=== PATIENT | female | born 1945 | race Caucasian/White ===

== ENCOUNTER 2025-05-22 13:54 | Outpatient (AMB) | payer OTHER, SELFPAY ==
[2025-05-22 14:03] VITALS: BMI 35.5
--- NOTE | 2025-05-22 14:03 | A.PHYSOV ---
Vital Signs 05/22/25 14:03 Height 5 ft Weight 182 lb BMI 35.5 Intake Visit Reasons: 1M FUV Intake Note: Patient is a 80 year old female here for follow up on neck pain. 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 She has undergone 12 sessions of therapy which provided temporary relief but no lasting benefit. The pain is localized to the neck and radiates to the head upon certain movements. The patient reports that moving her neck exacerbates the pain, while lifting her arm does not cause any discomfort. She is currently taking gabapentin at night, which aids in sleep, and naproxen as needed for pain management. She avoids taking naproxen frequently to prevent overuse. The patient has a history of lumbar spinal stenosis for which she received injections and subsequently underwent surgery, resulting in significant improvement. She has failed conservative treatment and would like to consider further treatment options. Pain Description - Onset: Chronic neck pain with radiation to the head upon certain movements - Quality: Pain exacerbated by neck movement, not affected by arm movement - Relieving factors: Gabapentin aids sleep, naproxen used as needed Results X-ray cervical spine 09/28/2024 impression: Suggestion of muscle spasm. Multilevel bony and disc degenerative changes. [facility] Surgical History (Updated 05/22/25 @ 13:59 by Lara Smith MA) History of cataract surgery (Unknown) H/O tubal ligation (Unknown) History of carpal tunnel surgery (Unknown) Hx of tonsillectomy (Unknown) Previous section (Unknown) History of back surgery (Unknown) Social History (Updated 05/22/25 @ 14:01 by Lara Smith MA) Alcohol intake: current Alcohol intake frequency: holidays/special occasions only Patient Tobacco Use Status: Former Tobacco user Use of substances other than those prescribed or required for medical reasons: Yes Substance Use Type: Marijuana Review of Systems Narrative Review of Systems - Musculoskeletal: Reports neck pain radiating to the head, denies arm pain - Neurological: Denies claustrophobia, denies presence of metal in the body Physical Exam Exam Exam: Physical Exam Cervical Spine: Examination of the cervical spine, there is no visible swelling or deformity. She is tender to the right cervical paraspinal musculature. She has limited range of motion of the cervical spine at end range throughout. Special Tests: Axial Compression test: Negative Spurlings test: Negative Lhermitte's sign is Negative Upper Extremities: Neuro: Sensation: Intact to upper extremities bilateral to light touch Strength C5 (Elbow Flexion): 5/5 on the left and 5/5 on the right. C6 (Elbow Ext): 5/5 on the left and 5/5 on the right. C7 (Elbow Ext): 5/5 on the left and 5/5 on the right. C8 (Finger Flex): 5/5 on the left and 5/5 on the right. T1 (Finger Abd/Add): 5/5 on the left and 5/5 on the right. DTR: C5 (Biceps): Left 2 Right 2 C6 (Brachioradialis): Left 2 Right 2 C7 (Triceps): Left 2 Right 2 Colin sign: Negative No pathologic clonus. No involuntary movement. Vital Signs: BMI result Body Mass Index 35.5 Assessment & Plan Assessment & Plan (1) Cervicalgia: Code(s): M54.2 - Cervicalgia Category: Medical (2) Spondylosis of cervical spine: Code(s): M47.812 - Spondylosis without myelopathy or radiculopathy, cervical region Category: Medical Plan Pain Management - Affect: Pain impacts daily activities, but sleep is improved with gabapentin - Analgesia: Gabapentin at night, naproxen as needed - Adverse Effects: None reported - Activities of Daily Living: Pain affects movement, but not arm lifting - Aberrant Drug Related Behaviors: None reported Plan Patient was informed and verbally consented to the use of an ambient scribe for clinic note documentation during this visit. 1. Neck Pain An MRI of the neck is recommended to assess the underlying cause of the pain, as x-rays do not provide sufficient detail regarding discs or nerve impingement. The MRI will be conducted in [employer] [facility] [employer], and the results will guide further management, potentially including injections. 2. Cervical Radiculopathy The patient experiences pain radiating from the neck to the head, suggesting cervical radiculopathy. Management includes continuation of gabapentin and naproxen as needed, with further evaluation pending MRI results. We may consider right-sided facet injection dependent upon her results. She will continue her home exercise plan and medications otherwise as prescribed. Thank you for allowing me to participate in the care of your patient. Orders: Orders MR cervical spine wo con Today M54.12 - Radiculopathy, cervical region Coding Level of Care Code Tele Est Pt Level 3 (00615) Diagnoses Cervicalgia M54.2 Spondylosis of cervical spine M47.812
== END 2025-05-22 14:23 | disposition home or self-care (01) ==
LOC: HO.HPHYS 13:54
PROVIDERS: PCP Internal Medicine; Visit Provider Physician Assistant
DX: M54.2 Cervicalgia (principal); M47.812 Spondylosis without myelopathy or radiculopathy, cervical region
CPT/HCPCS: 99213

== ENCOUNTER 2025-06-20 15:32 | Outpatient (AMB) | payer OTHER, SELFPAY ==
[2025-06-20 15:37] VITALS: BMI 35.5
--- NOTE | 2025-06-20 15:37 | A.PHYSOV ---
Vital Signs 06/20/25 15:37 Height 5 ft Weight 182 lb BMI 35.5 Intake Visit Reasons: MRI followup Intake Note: Patient is a 80 year old female here today for MRI review. 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 She rates her pain as a 6 out of 10 on average. The pain is located in the central neck, is worse on the right side, and is exacerbated by movement. She experiences occasional sharp pain that radiates up into her head but denies any radiation into her shoulders or arms. Her past surgical history is significant for a C5-6 cervical fusion. Imaging shows severe spinal stenosis and arthritis above the fusion, and moderate to severe spinal stenosis with neuroforaminal stenosis below the fusion. She has a history of lumbar stenosis that was treated successfully with injections and ultimately surgery. She currently takes gabapentin 100 mg at night, which she reports is helpful. Pain Description - Onset: Chronic. - Location: Central neck, predominantly on the right side. - Severity: Average pain is rated as 6 out of 10. - Quality: Characterized by sharp pain with certain movements. - Radiation: Pain radiates up into the head. - Exacerbating factors: Worsened by movement. - Associated symptoms: The patient denies pain radiating into her shoulders or arms. Results - Imaging: Review of prior cervical spine imaging reveals: - Status post C5-6 fusion. - Severe spinal stenosis and severe arthritis above the fusion. - Moderate to severe spinal stenosis below the fusion. - Moderate right and severe left neuroforaminal stenosis below the fusion. [facility] Surgical History History of cataract surgery (Unknown) H/O tubal ligation (Unknown) History of carpal tunnel surgery (Unknown) Hx of tonsillectomy (Unknown) Previous section (Unknown) History of back surgery (Unknown) Social History Alcohol intake: current Alcohol intake frequency: holidays/special occasions only Patient Tobacco Use Status: Former Tobacco user Substance Use Type: Marijuana Review of Systems Narrative Review of Systems - Musculoskeletal: Reports chronic neck pain, worse with movement. - Reports pain and inability to straighten one finger. - Neurological: Reports sharp pain that radiates into her head. - Denies pain radiation into the shoulders or arms. Physical Exam Exam Exam: Physical Exam Cervical Spine: She is tender to the right cervical paraspinal musculature. She has limited range of motion at end range particularly with lateral rotation and flexion to the right Special Tests: Axial Compression test: Negative Spurlings test: Negative Lhermitte's sign is Negative Upper Extremities: Full range of motion bilateral upper extremities. 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 Neuro: Sensation: Intact to upper extremities bilateral to light touch Strength C5 (Elbow Flexion): 5/5 on the left and 5/5 on the right. C6 (Elbow Ext): 5/5 on the left and 5/5 on the right. C7 (Elbow Ext): 5/5 on the left and 5/5 on the right. C8 (Finger Flex): 5/5 on the left and 5/5 on the right. T1 (Finger Abd/Add): 5/5 on the left and 5/5 on the right. DTR: C5 (Biceps): Left 2 Right 2 C6 (Brachioradialis): Left 2 Right 2 C7 (Triceps): Left 2 Right 2 Colin sign: Negative No pathologic clonus. No involuntary movement. Vital Signs: BMI result Body Mass Index 35.5 Assessment & Plan Assessment & Plan (1) Cervicalgia: Code(s): M54.2 - Cervicalgia Category: Medical (2) Spondylosis of cervical spine: Code(s): M47.812 - Spondylosis without myelopathy or radiculopathy, cervical region Category: Medical Plan Pain Management - Analgesia: The patient's pain averages 6/10. - She reports that gabapentin 100 mg at night works well for her pain. - Aberrant Drug-Related Behaviors: The patient reports taking two pills of gabapentin one night when her pain was particularly severe. Plan Patient was informed and verbally consented to the use of an ambient scribe for clinic note documentation during this visit. 1. Cervicalgia The patient's neck pain is attributed to cervical arthritis (spondylosis) rather than spinal stenosis, given the pain is exacerbated by movement and lacks radicular symptoms into the arms. A plan was made to proceed with right-sided cervical facet injections at C3-4, C4-5., as she is open to trying injections again and prefers to avoid surgery. The procedure will be performed at the hospital with the option of sedation, pending insurance authorization. Her gabapentin will be increased to 200 mg nightly, prescribed as two pills to allow for flexible dosing of one or two pills as needed. A follow-up visit is scheduled for three weeks after the injection. Discussion Notes I discussed with the patient that her imaging reveals severe spinal stenosis and arthritis above her C5-6 fusion and moderate to severe changes below it. I explained that I believe her pain, which is worse with movement and radiates to the head, is coming from the arthritis in her facet joints and not from the spinal stenosis, as she has no radicular pain into her arms. We discussed treatment options, including surgery, which she prefers to be a last resort. She is agreeable to trying injections again. I recommended right-sided cervical facet injections as the first step. I explained that the procedure would be done at the hospital under sedation, pending insurance approval, and she consented to this plan. We also discussed increasing her gabapentin to 200 mg nightly, with the option to take one or two pills for flexibility, and she was agreeable. A follow-up will be scheduled three weeks after the procedure. Regarding the finger issue, I mentioned it is likely a tendon problem and that a hand specialist could evaluate it, but the patient declined this referral at this time. Patient Instructions - We will schedule you for right-sided neck injections (facet injections) to help with your pain. - The procedure will be performed at the hospital, and you will have the option to go to sleep for it. - Our office will get approval from your insurance and will call you to schedule the appointment. - Your prescription for gabapentin has been changed to 200 mg. - You may take one or two pills at nighttime as needed for your pain. - You will have a follow-up appointment with this office three weeks after your injection. Orders: Referrals Physiatry Procedure Notification M47.812 - Spondylosis without myelopathy or radiculopathy, cervical region, M54.2 - Cervicalgia Medications: New gabapentin 200 mg (2 x 100 mg) PO BEDTIME 60 caps 0RF M54.2 - Cervicalgia Coding Level of Care Code Tele Est Pt Level 4 (46399) Diagnoses Cervicalgia M54.2 Spondylosis of cervical spine M47.816
--- OUTSIDE RECORDS SUMMARY | 2025-06-20 19:42 | XMS_ITS | Clinical Summary ---
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 12/30/2023 Active cholecalciferol (VITAMIN D-3) 50 mcg (2,000 unit) capsule TAKE ONE CAPSULE BY MOUTH EVERY DAY 10/23/2023 Active psyllium (Daily Fiber, psyllium-aspart ,) 3.4 gram packet Take 1 Packet by mouth daily. 3-4 times weekly Active naproxen (NAPROSYN) 500 mg tablet Take one tablet by mouth twice a day 90 tablet 03/08/2025 Active Hospital, Clinic, or Other Facility Administered Medication Ordered Dose Route Frequency Start Date End Date Status cyanocobalamin (VITAMIN B-12) injection 1,000 mcgIndications:B12 deficiency 1000 mcg IM Every 30 days 12/08/2024 12/03/2025 Active Active Problems Problem Noted Date Diagnosed Date Aortic dilatation 12/21/2023 Overview (04/14/2024): Ascending aortic dilatation at 4.2 cm, on echo November 2023. Assessment & Plan (08/18/2024 11:57 AM EST): Elevated TSH 03/06/2023 B12 deficiency 03/20/2021 Prediabetes 04/18/2019 Assessment & Plan (08/18/2024 11:57 AM EST): Orders: Hemoglobin A1c; Future Chronic right shoulder pain 04/18/2019 Dysthymia 08/07/2016 Dyslipidemia 08/16/2015 Assessment & Plan (08/18/2024 11:57 AM EST): Orders: Lipid panel with reflex to direct LDL; Future Diverticulitis of colon without hemorrhage 05/16 Overview (04/14/2024): Incidental finding at colonoscopy 05/16/2013. Depression 01/11/2010 Obesity 10/30/2009 HTN (hypertension), benign 10/30/2009 Assessment & Plan (08/18/2024 11:57 AM EST): Encounters Date Type Department Care Team Description 06/02/2025 2:11 PM EST - 06/02/2025 11:59 PM EST Hospital Encounter Radiology Department - [address] [phone] Radiculopathy, cervical region Discharge Disposition: Home or Self Care 05/31/2025 1:30 PM EST Clinical Support Adult Medicine [address] [phone] B12 deficiency (Primary Dx) 05/19/2025 1:00 PM EST Treatment Outpatient Rehabilitation - [address] [phone] Malachi Torres, LOPEZ Neck pain (Primary Dx) 05/17/2025 1:00 PM EST Treatment Outpatient Rehabilitation - [address] [phone] Connie Cummings H, COTTON JAMMER Neck pain (Primary Dx) 05/12/2025 1:00 PM EST Treatment Outpatient [address] [phone] KarolinasConnie H, COTTON JAMMER Neck pain (Primary Dx) 05/10/2025 1:00 PM EST Treatment Outpatient [address] [phone] KarolinasConnie H, COTTON JAMMER Neck pain (Primary Dx) 05/05/2025 1:00 PM EDT Treatment Outpatient [address] [phone] KarolinasConnie H, COTTON JAMMER Neck pain (Primary Dx) 05/03/2025 2:00 PM EDT Treatment Outpatient [address] [phone] Connie Cummings H, COTTON JAMMER Neck pain (Primary Dx) 05/03/2025 1:30 PM EDT Clinical Support Adult Medicine [address] [phone] B12 deficiency (Primary Dx) 04/21/2025 12:30 PM EDT Treatment Outpatient [address] [phone] Connie Cummings H, COTTON JAMMER Neck pain (Primary Dx) 04/19/2025 1:30 PM EDT Treatment Outpatient [address] [phone] KarolinasConnie H, COTTON JAMMER Neck pain (Primary Dx) 04/12/2025 1:00 PM EDT Treatment Outpatient [address] [phone] KarolinasConnie H, COTTON JAMMER Neck pain (Primary Dx) 04/06/2025 1:00 PM EDT Evaluation Outpatient [address] [phone] Malachi Torres, PT Neck pain (Primary Dx) 04/05/2025 2:30 PM EDT Clinical Support Adult Medicine [facility] [address] [place] [address] 03/28/2025 Telephone [facility] Cardiology [facility] [address] [place] [address] Manuel Aragon MD from Last 3 Months Immunizations Immunization Administration Dates Next Due Influenza trivalent, 0.5mL ( Fluzone High-dose) 65yo and older 07/26/2024,05/01/2023,04/10/2022,03/20,05/25/2020,05/03/2019,04/29/2017 ,06/12/2015,05/30/2014 Influenza trivalent, with pr eservative (Fluzone; Afluria) 6mo and older 05/20/2012,04/16/2011,05/02/2010 Pneumococcal conjugate 13 va lent (Prevnar 13, PCV13) 2mo and older 10/04/2015 Pneumococcal polysaccharide 23 valent (Pneumovax 23) 2yo and older 05/20/2012 Tdap Tetanus diptheria acell ular pertussis (Boostrix; Adacel) 7yo and older 10/09/2022,09/20/2012 Zoster recombinant (Shingrix ) 19yo and older 09/10/2023,05/01/2023 Surgical History Surgery Date Site/Laterality Comments SECTION PROCEDURE: HISTORICAL DELIVERY; COMMENT: three COLONOSCOPY 2002 PROCEDURE: MS COLONOSCOPY FLX DX W/COLLJ SPEC WHEN PFRMD; COMMENT: Negative examination, [place], [place] COLONOSCOPY 2012 PROCEDURE: MS COLONOSCOPY FLX DX W/COLLJ SPEC WHEN PFRMD; COMMENT: Minimal diverticulosis. TONSILLECTOMY PROCEDURE: HISTORICAL TONSILLECTOMY Medical History Medical History Date Comments Diverticulosis of colon (wit hout mention of hemorrhage) 05/16/2013 DX:Diverticulosis of colon ( without mention of hemorrhage); COMMENT: Incidental finding at colonoscopy 05/16/2013. Family History Medical History Relation Name Comments Autoimmune disease Neg Hx Breast cancer Neg Hx Colon cancer Neg Hx Coronary artery disease Neg Hx Diabetes Neg Hx Heart attack Neg Hx Heart failure Neg Hx Hyperlipidemia Neg Hx Hypertension Neg Hx Mental illness Neg Hx Prostate cancer Neg Hx Sleep apnea Neg Hx Thyroid disease Neg Hx Relation Name Status Comments Father Alive dm, cva Mother (Age 72) dm,renal f ailure, mi Paternal Grandfather (Age 89) dm Sister 1 Alive Sister 2 Alive Social History Tobacco Use Types Packs/Day Years Used Date Smoking Tobacco: Former Cigarettes 0.3 Q uit: 07/06/1997 Smokeless Tobacco: Never Tobacco Cessation:Counseling Given: Not Answered Alcohol Use Standard Drinks/Week Comments Yes 0 (1 standard drink = 0.6 oz pur e alcohol) Housing Instability Answer Date Recorde d Are you worried that in the next 2 months you may not have stable housing? No 08/24/2024 Food Access & Nutrition Answer Date Rec orded Do you have access to a vari ety of food including fruits and vegetables? Yes 08/24/2024 Access to Healthcare Answer Date Record ed Within the last 3 months, ho w many times did you visit the emergency department for your medical care? 0 08/24/2024 Health Literacy Answer Date Recorded How often do you need to hav e someone help you when you read instructions, pamphlets, or other written material from your doctor or pharmacy? Never 08/24/2024 Caregiver: How often do you need to have someone help you when you read instructions, pamphlets, or other written material from your doctor or pharmacy? Not on file 08/24/2024 Financial Risk Answer Date Recorded How hard is it for you to pa y for the very basics like food, housing, medical care, and air conditioning / heating? Not very hard 08/24/2024 Transportation Answer Date Recorded Has the lack of transportati on kept you from meetings, work, or from getting things needed for daily living? No Has the lack of transportati on kept you from medical appointments or from getting medications? No 08/24/2024 Social Isolation Answer Date Recorded How often do you feel lonely or isolated from th ose around you? Never 08/24/2024 Food Risk Answer Date Recorded Within the past 12 months we worried whether our food would run out before we got money to buy more. Never true 08/24/2024 Within the past 12 months th e food we bought just didn't last and we didn't have money to get more. Never true 08/24/2024 Dependent Care Answer Date Recorded Do you need help finding or paying for care for your loved ones. For example, child care associate teacher or elderly care for an older adult? No 08/24/2024 Education Answer Date Recorded Do you think completing more education or training, like finishing a GED, going to college, or learning a trade, would be helpful for you? No 08/24/2024 Employment and Income Answer Date Recor ded During the last four weeks, have you been actively looking for work? No 08/24/2024 Living Situation Answer Date Recorded What is your living situation? Unrecognized valu e 08/24/2024 Comments No Sex and Gender Information Value Date Recorded Sex Assigned at Not on file Legal Sex Female 1:05 AM EST Gender Identity Not on file Sexual Orientation Not on file Obstetrics History Para Term AB IAB SAB Ectopic Multiple Livin g Live Births 3 3 3 3 Date Outcome GA Total Labor Labor/2nd/3rd Weight Sex Type Anes PTL Audrey A1 A5 Name Clin Term Term Term Last Filed Vital Signs Vital Sign Reading Time Taken Comments Blood Pressure 142/71 03/08/2025 3:17 PM EDT no c/p no sob provider will recheck Pulse 52 03/08/2025 3:17 PM EDT Temperature 35.7 C (96.3 F) 03/08/2025 3:17 PM EDT Respiratory Rate 15 03/08/2025 3:17 PM EDT Oxygen Saturation 93% 03/08/2025 3:1 7 PM EDT Inhaled Oxygen Concentration - - Weight 87.1 kg (192 lb) 03/08/2025 3:17 PM EDT Height 152.4 cm (5') 03/08/2025 3:17 PM EDT Body Mass Index 37.5 03/08/2025 3:17 PM EDT Plan of Treatment Upcoming Encounters Date Type Department Care Team (Late st Contact Info) Description 07/03/2025 1:00 PM EST [facility]ointment [facility] [address] [phone] 07/05/2025 11:15 AM EST Clinical Support Adult Medicine [address] [phone] Health Maintenance Due Date Last Done Comments RSV Immunization Adult Patients (1 - 1-dose 75+ series) 2022 Hypertension/CHF/CAD Annual BMP Blood Test 11/19/2024 11/20/2023, 11/20/2023 Medicare Annual Wellness Visit 08/18/2025 08/18/2024 Social Influencers of Health Screening 08/24/2025 08/24/2024 COVID-19 Vaccine ( season) 2025 03/18/2025, 07/26/2024, 09/10/2023, Additional history exists Falls Risk Assessment 03/24/2026 03/24/2025, 025 Cholesterol Screening (Lipid Panel) 04/06/2030 04/06/2025, 08/16/2024, 05/23/2024, Additional history exists DTaP,Tdap,and Td Vaccines (3 - Td or Tdap) 10/09/2032 10/09/2022, 09/20/2012 Osteoporosis Screening (Bone Density Screening) 07/29/2034 07/29/2024, 06/13/2021, 06/05/2017 Hepatitis C Screening Completed 10/04/2015 Pneumococcal Vaccine: 50+ Years Completed 10/04/2015, 05/20/2012 Zoster Vaccines Completed 09/10/2023, 05/01/2023 Influenza Vaccine Completed 03/18/2025, , 05/01/2023, Additional history exists Depression Screening Completed 03/22/2025 HIB Vaccines Aged Out No longer eligi ble based on patient's age to complete this topic HPV Vaccines Aged Out No longer eligi ble based on patient's age to complete this topic Hepatitis A Vaccines Aged Out No long er eligible based on patient's age to complete this topic Hepatitis B Vaccines Aged Out No long er eligible based on patient's age to complete this topic IPV Vaccines Aged Out No longer eligi ble based on patient's age to complete this topic MMR Vaccines Aged Out No longer eligi ble based on patient's age to complete this topic Meningococcal ACWY Vaccine Aged Out N o longer eligible based on patient's age to complete this topic Meningococcal B Vaccine Aged Out No l onger eligible based on patient's age to complete this topic RSV Immunization Patients Under 20 months Aged Out No longer eligible based on patient's age to complete this topic Varicella Vaccines Aged Out No longer eligible based on patient's age to complete this topic Goals Goal Patient Goal Type Associated Problems Recent Progress Patient-Stated? Author LTG's 12 visits General Yes Malachi Torres, PT Note: Pt will demonstrate cervical extension of 55 degrees or better for overhead IADL's. (Not met). Pt will demonstrate DNFET of 38 seconds or better. (Progress made) Pt will report waking no more than 1x/night, 2 or less nights/week. (Met) Pt will be Independent and compliant with final HEP. (Not met) Procedures Procedure Name Priority Date/Time Associated Diagnosis Comments MR CERVICAL SPINE WO CONTRAST Routine 06/02/2025 3:15 PM EST Radiculopathy, cervical region LIPID PANEL WITH REFLEX TO DIRECT LDL Routine 04/06/2025 1:53 PM EDT Dyslipidemia HEMOGLOBIN A1C Routine 04/06/2025 1:53 PM EDT Prediabetes THYROID STIMULATING HORMONE WITH REFLEX TO FREE T4 AND FREE T3 Routine 04/06/2025 1:53 PM EDT Subclinical hypothyroidism BD BONE DENSITY DXA AXIAL SKELETON Routine 07/29/2024 1:12 PM EST Encounter for osteoporosis screening in asymptomatic postmenopausal patient ANNUAL BMP BLOOD TEST Routine 11/20/2023 HEPATITIS C SCREENING Routine 10/04/2015 from Last 3 Months or Most Recently Relevant to Health Maintenance Results * MR Cervical Spine wo Contrast (06/02/2025 3:15 PM EST) Anatomical Region Laterality Modality C-spine, Spine Magnetic Resonan ce 06/02/2025 3:30 PM EST Impressions 06/02/2025 3:57 PM EST Impression: 1. Postoperative changes at C5-C6 with fusion. 2. Multilevel degenerative changes with severe bilateral neuroforaminal stenosis and severe spinal canal stenosis at C4-C5. 3. C6-C7 Central/left paracentral disc herniation with moderate to severe spinal canal stenosis -------- FINAL REPORT -------- Dictated By: Evelyn Balbuena Dictated Date: 06/02/2025 15:30 ET Assigned Physician: Evelyn Balbuena Reviewed and Electronically Signed By: Evelyn Balbuena Signed Date: 06/02/2025 15:57 ET Workstation ID: [id number] Transcribed By: Self Edit Transcribed Date: 06/02/2025 15:30 ET Narrative 06/02/2025 3:57 PM EST MRI CERVICAL SPINE Clinical Statement: chronic neck pain with radiation to the head upon certin movements. Comparison: None Technique: Multiplanar, multisequence MRI images of the cervical spine were obtained without intravenous contrast. Findings: There is mild straightening of the cervical spine to the level of C6 which may be due to prior postoperative changes. The craniocervical junction is grossly within normal limits. No acute fracture or dislocation. Postoperative changes at C5-C6 with fusion.. Markedly heterogeneous vertebral body marrow signal consistent with degenerative changes. Disc desiccation at multiple levels with disc height loss at C3-C4, C4-C5 and C6-C7. Cord signal is within normal limits. The visualized posterior fossa structures are normal. 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 C2-C3: Central disc protrusion without neuroforaminal or spinal canal stenosis C3-C4: Broad-based disc bulge and uncovertebral arthropathy resulting in severe bilateral neuroforaminal stenosis and mild spinal canal stenosis C4-C5: Broad-based disc bulge and central disc osteophyte complex protrusion, uncovertebral arthropathy resulting in severe bilateral neuroforaminal stenosis and severe spinal canal stenosis C5-C6: Postoperative changes with mild posterior osteophytes resulting in severe bilateral neuroforaminal stenosis and moderate spinal canal stenosis C6-C7: Broad-based disc bulge and central/left paracentral disc herniation resulting in moderate right and severe left neuroforaminal stenosis. Moderate to severe spinal canal stenosis is present. C7-T1: Mild broad-based disc bulge with moderate bilateral neuroforaminal stenosis, no spinal canal stenosis Procedure Note Evelyn Balbuena MD - 06/02/2025 MRI CERVICAL SPINE Clinical Statement: chronic neck pain with radiation to the head uponcertin movements. Comparison: None Technique: Multiplanar, multisequence MRI images of the cervical spinewere obtained without intravenous contrast. Findings: There is mild straightening of the cervical spine to the levelof C6 which may be due to prior postoperative changes. The craniocervicaljunction is grossly within normal limits. No acute fracture ordislocation. Postoperative changes at C5-C6 with fusion.. Markedlyheterogeneous vertebral body marrow signal consistent with degenerativechanges. Disc desiccation at multiple levels with disc height loss atC3-C4, C4-C5 and C6-C7. Cord signal is within normal limits. Thevisualized posterior fossa structures are normal. Incidentally notedprobable right aberrant subclavian. C2-C3: Central disc protrusion without neuroforaminal or spinal canalstenosis C3-C4: Broad-based disc bulge and uncovertebral arthropathy resulting insevere bilateral neuroforaminal stenosis and mild spinal canal stenosis C4-C5: Broad-based disc bulge and central disc osteophyte complexprotrusion, uncovertebral arthropathy resulting in severe bilateralneuroforaminal stenosis and severe spinal canal stenosis C5-C6: Postoperative changes with mild posterior osteophytes resulting insevere bilateral neuroforaminal stenosis and moderate spinal canalstenosis C6-C7: Broad-based disc bulge and central/left paracentral disc herniationresulting in moderate right and severe left neuroforaminal stenosis.Moderate to severe spinal canal stenosis is present. C7-T1: Mild broad-based disc bulge with moderate bilateral neuroforaminalstenosis, no spinal canal stenosis IMPRESSION: Impression: 1. Postoperative changes at C5-C6 with fusion. 2. Multilevel degenerative changes with severe bilateral neuroforaminalstenosis and severe spinal canal stenosis at C4-C5. 3. C6-C7 Central/left paracentral disc herniation with moderate to severespinal canal stenosis -------- FINAL REPORT -------- Dictated By: Evelyn Balbuena Dictated Date: 06/02/2025 15:30 ET Assigned Physician: Evelyn Balbuena Reviewed and Electronically Signed By: Evelyn Balbuena Signed Date: 06/02/2025 15:57 ET Workstation ID: [id number] Transcribed By: Self Edit Transcribed Date: 06/02/2025 15:30 ET Malcom LIN IMG MRI PROCEDURES Final Resul t * Thyroid stimulating hormone with reflex to free t4 and free t3 (04/06/2025 1:53 PM EDT) Pathologist [facility] TSH 2.97 0.40 - 4.00 mcIU/mL LAB CHEMISTRY METHOD 04/06/2025 5:56 PM EDT [facility] Blood Venous blood specimen / Unknown Venipuncture / Unknown 04/06/2025 1:53 PM EDT 04/06/2025 1:53 PM EDT Manuel Aragon MD LAB BLOOD ORDERABLES Final Resul t [facility] [address] [place] [address], [place] [phone] * (ABNORMAL) Lipid panel with reflex to direct LDL (04/06/2025 1:53 PM EDT) Pathologist [facility] Cholesterol 205(H) 0 - 200 mg/dL LAB CHEMISTRY METHOD 04/06/2025 5:23 PM EDT [facility] Triglycerides 71 0 - 150 mg/dL LAB CHEMISTRY METHOD 04/06/2025 5:23 PM EDT [facility] HDL 59 >=40 mg/dL LAB CHEMISTRY METHOD 04/06/2025 5:23 PM EDT [facility] LDL Calculated 132(H) 0 - 100 mg/dL LAB CHEMISTRY METHOD 04/06/2025 5:23 PM EDT [facility] Comment:Estimated LDL Calcul ated using equation: Total cholesterol - HDL cholesterol - (Triglycerides/5) VLDL Cholesterol Get 14.2 mg/dL LAB CHEMISTRY METHOD 04/06/2025 5:23 PM EDT [facility] Non HDL Chol. (LDL+VLDL) 146(H) <145 mg/dL LAB CHEMISTRY METHOD 04/06/2025 5:23 PM EDT [facility] Chol/HDL Ratio 3.5 0.0 - 4.4 LAB CHEMISTRY METHOD 04/06/2025 5:23 PM EDT [facility] Blood Venous blood specimen / Unknown Venipuncture / Unknown 04/06/2025 1:53 PM EDT 04/06/2025 1:53 PM EDT us Manuel Aragon MD LAB BLOOD ORDERABLES Final Resul t Performing Organization Address City/[facility]/ZIP Co de Phone Number [facility] [address] [place] [address], [place] [phone] * Hemoglobin A1c (04/06/2025 1:53 PM EDT) Hemoglobin A1C 5.9 <6.5 % LAB CHEMISTRY METHOD 04/06/2025 10:24 PM EDT [facility] Mean Bld Glu Estim. 123 mg/dL LAB CHEMISTRY METHOD 04/06/2025 10:24 PM EDT [facility] Blood Venous blood specimen / Unknown Venipuncture / Unknown 04/06/2025 1:53 PM EDT 04/06/2025 1:53 PM EDT us Manuel Aragon MD LAB BLOOD ORDERABLES Final Resul t Performing Organization Address [facility]/ZIP Co de Phone Number [facility] [address] [place] [address], [place] [phone] * BD Bone Density DXA Axial Skeleton (07/29/2024 1:12 PM EST) Anatomical Region Laterality Modality Wrist, Hip, L-spine Bone Densito metry 07/30/2024 11:3 5 AM EST Impressions 07/30/2024 11:36 AM EST Normal bone mineral density. Malia LIN ([id number]) -------- FINAL REPORT -------- Dictated By: Kennedi Gonzalez Dictated Date: 07/30/2024 11:35 ET Assigned Physician: Kennedi Gonzalez Reviewed and Electronically Signed By: Kennedi Gonzalez Signed Date: 07/30/2024 11:36 ET Workstation ID: [id number] Transcribed By: Self Edit Transcribed Date: 07/30/2024 11:35 ET Narrative 07/30/2024 11:36 AM EST History: Low estrogen state due to menopause. Prior smoker. Comparison: No comparison imaging at this institution. Findings: Bone densitometry is performed utilizing dual energy x-ray absorptiometry (DXA) in the [employer] unit. The lumbar spine and proximal femora are evaluated in the AP projection. The FRAX questionaire was completed. The results indicate normal bone mineral density, with a right femoral neck T- score of -0.2. The Z score is 1.3, indicating bone mineral density slightly higher than normal for age. The detailed DEXA report will be mailed to the referring physician's office. [employer] FRAX: 10-year Probability of Fracture: Major Osteoporotic 7.9 percent Hip 0.9 percent. Procedure Note Kennedi Gonzalez MD - 07/30/2024 History: Low estrogen state due to menopause. Prior smoker. Comparison: No comparison imaging at this institution. Findings: Bone densitometry is performed utilizing dual energy x-ray absorptiometry(DXA) in the [employer] unit. The lumbar spine and proximal femora areevaluated in the AP projection. The FRAX questionaire was completed. The results indicate normal bone mineral density, with a right femoralneck T- score of -0.2. The Z score is 1.3, indicating bone mineral densityslightly higher than normal for age. The detailed DEXA report will bemailed to the referring physician's office. [employer] FRAX: 10-year Probability of Fracture: Major Osteoporotic 7.9percent Hip 0.9 percent. IMPRESSION: Normal bone mineral density. Telerad RILEY ([id number]) -------- FINAL REPORT -------- Dictated By: Kennedi Gonzalez Dictated Date: 07/30/2024 11:35 ET Assigned Physician: Kennedi Gonzalez Reviewed and Electronically Signed By: Kennedi Gonzalez Signed Date: 07/30/2024 11:36 ET Workstation ID: [id number] Transcribed By: Self Edit Transcribed Date: 07/30/2024 11:35 ET Manuel Aragon MD IMG DXA PROCEDURES Final Result * Annual BMP Blood Test (11/20/2023) Annual BMP Blood Test Abstracted Historical Provider HEALTH MAINTENANCE Final Result * Hepatitis C Screening (10/04/2015) Hepatitis C Screening Abstracted Historical Provider HEALTH MAINTENANCE Final Result from Last 3 Months or Most Recently Relevant to Health Maintenance Insurance [employer] Care Teams 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
== END 2025-06-20 16:16 | disposition home or self-care (01) ==
LOC: HO.HPHYS 15:33
PROVIDERS: PCP Internal Medicine; Visit Provider Physician Assistant
DX: M54.2 Cervicalgia (principal); M47.812 Spondylosis without myelopathy or radiculopathy, cervical region
CPT/HCPCS: 99214